=== PATIENT | female | born 1985 | race Caucasian/White ===

== ENCOUNTER 2017-04-30 05:22 | Inpatient (IN) ==
[2017-04-30 05:56] LABS: URINE SOURCE VOIDED
[2017-04-30 05:58] LABS: BILIRUBIN URINE NEGATIVE (NEGATIVE); BLOOD URINE 4+ (NEGATIVE); CLARITY CLEAR (CLEAR); COLOR YELLOW; GLUCOSE URINE NEGATIVE (NEGATIVE); LEUKOCYTES URINE 1+ (NEGATIVE); NITRITE URINE NEGATIVE (NEGATIVE); PH URINE 6.5; PROTEIN URINE TRACE mg/dL (NEGATIVE); SP GRAVITY URINE 1.015; UROBILINOGEN URINE NORMAL
[2017-04-30] MEDS ORDERED: PITOCIN 30 UNITS/LR 30 UNITS/500 ML IV.SOLN IV SCH (06:47)
[2017-04-30] MEDS ORDERED: REGLAN PO ONE (06:47)
[2017-04-30] MEDS ORDERED: STADOL IV PRN (06:47)
[2017-04-30] MEDS ORDERED: PEPCID PO ONE (06:47)
[2017-04-30] MEDS ORDERED: ZOFRAN IV PRN (06:47)
[2017-04-30] MEDS ORDERED: PEPCID PO PRN (06:47)
[2017-04-30] MEDS ORDERED: TYLENOL PO PRN (06:47)
[2017-04-30] MEDS ORDERED: KEFZOL 1 GM/D5W 1 GM/50 ML IVPB IV PRN (06:47)
[2017-04-30] MEDS ORDERED: PEPCID IV PRN (06:47)
[2017-04-30] MEDS: LR 1,000 ML IV SCH ×2 (06:55→07:50)
[2017-04-30] MEDS ORDERED: SODIUM CHLORIDE 0.9% INJ SCH (07:00)
[2017-04-30] MEDS ORDERED: NAROPIN 0.2% EPIDURAL PRN (07:17)
[2017-04-30 07:29] LABS: MANUAL DIFF NEEDED? NO
[2017-04-30] MEDS ORDERED: MINERAL OIL TOP ONE (07:33)
[2017-04-30] MEDS ORDERED: XYLOCAINE-MPF 1% INJ ONE (07:34)
[2017-04-30 07:40] LABS: BASO% 0.2 % (0.0-0.8); EOS# 0.09 X1000 (0.0-0.7); EOS% 0.9 % (0.0-10.0); HEMOGLOBIN 13.5 g/dL (12.0-16.0); IMM GRAN# 0.06 X1000 (0.0-0.04); IMM GRAN% 0.6 % (0.0-0.5); LYMPH# 1.67 X1000 (1.2-3.4); LYMPH% 17.2 % (20.5-51.1); MCH 29.8 PG (27-31); MCHC 34.6 g/dL (33-37); MCV 86.1 FL (81-99); MONO# 0.78 X1000 (0.11-0.59); MPV 11.1 FL (7.4-10.4); NEUT% 73.1 % (42.2-75.2); PLT 143 X1000 (130-400); RBC 4.53 XMIL (4.2-5.4)
--- NOTE | 2017-04-30 10:31 | OPERATIVE NOTE ---
PROCEDURE DATE: 04/30/2017 DELIVERING PHYSICIAN: Nabil White M.D. TYPE OF DELIVERY: Spontaneous controlled vaginal delivery. ANESTHESIA: Epidural. FINDINGS: At 0951, a 6-pound 11-ounce female was delivered in the occiput anterior presentation. Apgars were 9 at 1 minute and 10 at 5 minutes. There was a nuchal cord x1. SUMMARY: Kayla Maurer is a 31-year-old, 3, para 2-0-0-2, who is at term gestation. Her blood type is A positive. Rubella immune. Hepatitis B surface antigen, HIV, and group B strep negative. Mrs. Maurer presented to Labor and Delivery this morning in active labor. She was admitted. An epidural was placed for labor pain management. Membranes were ruptured, revealing clear fluid. She progressed through labor without signs of distress or dystocia. She became complete and began pushing. She rapidly crowned. At that point, she was placed in the dorsal lithotomy position. The perineum was prepped and draped in the usual fashion. A spontaneous controlled vaginal delivery occurred. Once the infant's head was delivered, the oropharynx was bulb suctioned. The shoulders and body delivered without complications. The cord was clamped and cut. The was handed to the nurses for further care and evaluation. Cord blood was obtained. Placenta was spontaneously delivered and was intact. There were no cervical lacerations. There was a superficial midline tear, which was repaired in layers using 3-0 chromic suture. Blood loss was approximately 150 mL. No complications. The patient remained in the LDR, recovering without difficulty. cc: Nabil White MD
[2017-04-30] MEDS ORDERED: HYDROXYZINE IM PRN (10:51)
[2017-04-30] MEDS ORDERED: PITOCIN 30 UNITS/LR 30 UNITS/500 ML IV.SOLN IV ONE (10:51)
[2017-04-30] MEDS ORDERED: MINERAL OIL PO PRN (10:51)
[2017-04-30] MEDS ORDERED: NORCO-5 PO PRN (10:51)
[2017-04-30] MEDS ORDERED: PITOCIN IM PRN (10:51)
[2017-04-30] MEDS ORDERED: BENADRYL PO PRN (10:51)
[2017-04-30] MEDS ORDERED: BENADRYL IV PRN (10:51)
[2017-04-30] MEDS ORDERED: NORCO-10 PO PRN (10:51)
[2017-04-30] MEDS ORDERED: HYDROXYZINE PO PRN (10:51)
[2017-04-30] MEDS ORDERED: PERI MEDS (DERMOPLAST/NUPERCAINAL/TUCKS) MISC PRN (10:51)
[2017-04-30] MEDS ORDERED: PERCOCET-5 PO PRN (10:51)
[2017-04-30] MEDS ORDERED: PITOCIN 20 UNITS/LR 20 UNITS/1,000 ML IV.SOLN IV SCH (10:51)
[2017-04-30] MEDS ORDERED: XYLOCAINE-MPF 1% INJ PRN (10:51)
[2017-04-30] MEDS ORDERED: M-M-R II VACCINE SUBQ ONE (10:51)
[2017-04-30] MEDS ORDERED: CYTOTEC PO PRN (10:51)
[2017-04-30] MEDS ORDERED: BOOSTRIX VACCINE IM ONE (10:51)
[2017-04-30] MEDS ORDERED: AMBIEN PO PRN (10:51)
[2017-04-30] MEDS: MOTRIN PO PRN (13:53)
[2017-04-30] MEDS: PERICOLACE PO SCH (21:08)
[2017-05-01] MEDS: MOTRIN PO PRN ×2 (03:47→18:33)
[2017-05-01] MEDS: PERCOCET-10 PO PRN ×2 (03:47→18:34)
[2017-05-01 07:01] LABS: HEMATOCRIT 32.6 % (37.0-47.0); HEMOGLOBIN 10.9 g/dL (12.0-16.0); MCH 29.9 PG (27-31); MCHC 33.4 g/dL (33-37); MCV 89.3 FL (81-99); MPV 11.3 FL (7.4-10.4); RBC 3.65 XMIL (4.2-5.4)
[2017-05-01] MEDS: PRECARE PO SCH (08:58)
[2017-05-01] MEDS: HEMOCYTE PLUS CAPSULE PO SCH (08:58)
[2017-05-01] MEDS: PERICOLACE PO SCH (21:09)
[2017-05-02] MEDS: PERCOCET-10 PO PRN (03:56)
[2017-05-02] MEDS: MOTRIN PO PRN (03:56)
[2017-05-02 07:58] VITALS: BP 117/65
[2017-05-02] MEDS: PRECARE PO SCH (09:38)
[2017-05-02] MEDS: HEMOCYTE PLUS CAPSULE PO SCH (09:38)
--- NOTE | 2017-05-02 19:29 | DISCHARGE SUMMARY ---
ADMISSION DATE: 04/30/2017 DISCHARGE DATE: 05/02/2017 ADMITTING DIAGNOSIS: Term , for labor induction. DISCHARGE DIAGNOSIS: Term , for labor induction. PROCEDURE: Vaginal delivery. CONDITION: Stable. DIET: As tolerated. ACTIVITY: Routine . MEDICATIONS: [place] 5. Motrin 800. Continue vitamins, iron and stool softener. FOLLOWUP: She is to follow up in [address] White. HOSPITAL COURSE: Ms. refer to Ms. Maurer's records and delivery note. She was admitted and underwent labor induction and had a successful vaginal delivery. Currently day 2 and desiring discharge. Her vital signs are stable. She is afebrile. Abdomen is distended. Uterus is firm. No cyanosis, clubbing, edema in her extremities. No new laboratory values. Her post-delivery hemoglobin and hematocrit from yesterday was 10.9/32.6. We will discharge with above instructions. cc: MD Nabil De Luna MD
== END 2017-05-02 13:50 | disposition home or self-care (01) ==
LOC: P.NBC 05:22 → P.LD 05:26 → P.WC 14:23
PROVIDERS: ADMIT Obstetrics & Gynecology; ATTEND Obstetrics & Gynecology